=== PATIENT | female | born 1985 ===

== ENCOUNTER 2023-09-21 10:49 | Observation (INO) | payer OTHER, SELFPAY ==
[2023-09-21 11:20] VITALS: BP 111/78
[2023-09-21 11:34] VITALS: BP 141/78
== END 2023-09-21 12:00 | disposition home or self-care (01) ==
LOC: LDRP 10:49
PROVIDERS: ADMITTING PHYSICIAN Obstetrics & Gynecology; FAMILY PHYSICIAN Family Medicine
DX: O48.0 Post-term pregnancy (principal); Z3A.40 40 weeks gestation of pregnancy; O09.523 Supervision of elderly multigravida, third trimester; Z53.29 Procedure and treatment not carried out because of patient's decision for other reasons
CPT/HCPCS: 76815